=== PATIENT | female | born 2000 | race Caucasian/White ===

== ENCOUNTER 2018-06-29 13:19 | Emergency (ER) | payer MEDICAID ==
[2018-06-29 13:28] VITALS: BP 113/68
--- NOTE | 2018-06-29 13:41 | EDPHY ---
H & P Stated Complaint: ring stuck on left middle finger Time Seen by Provider: 06/29/18 13:31 HPI/ROS: CHIEF COMPLAINT: Ring stuck HISTORY OF PRESENT ILLNESS: Patient is a 17-year-old female who comes to the emergency department complaining ring that is stuck on her left middle finger. She states that it is a cheap ring and that it is too tight. She was sitting in class today and realized that she could not get off. She tried using soap without avail. She states that she began to panic and decided to go to the urgent care. At the urgent care they initially tried to unravel it with dental floss but this did not work. They then tried to cut with ring cutters but there is were not strong enough. They recommended she come to the ER. She denies any trauma or injury to her finger. She has not had any wounds or infections. Severity: Moderate Modifying factors: None REVIEW OF SYSTEMS: Constitutional: denies: chills, fever, recent illness, recent injury EENTM: denies: blurred vision, double vision, nose congestion Respiratory: denies: cough, shortness of breath Cardiac: denies: chest pain, irregular heart rate, lightheadedness, palpitations Gastrointestinal/Abdominal: denies: abdominal pain, diarrhea, nausea, vomiting, blood streaked stools Genitourinary: denies: dysuria, frequency, hematuria, pain Musculoskeletal: See HPI Skin: denies: lesions, rash, jaundice, bruising Neurological: denies: headache, numbness, paresthesia, tingling, dizziness, weakness Hematologic/Lymphatic: denies: blood clots, easy bleeding, easy bruising Immunologic/allergic: denies: HIV/AIDS, transplant 10 systems reviewed and negative except as noted EXAM: GENERAL: Well-appearing, well-nourished and in no acute distress. HEAD: Atraumatic, normocephalic. EYES: Pupils equal round and reactive to light, extraocular movements intact, sclera anicteric, conjunctiva are normal. ENT: TMs normal, nares patent, oropharynx clear without exudates. Moist mucous membranes. NECK: Normal range of motion, supple without lymphadenopathy or JVD. LUNGS: Breath sounds clear to auscultation bilaterally and equal. No wheezes rales or rhonchi. HEART: Regular rate and rhythm without murmurs, rubs or gallops. ABDOMEN: Soft, nontender, normoactive bowel sounds. No guarding, no rebound. No masses appreciated. BACK: No CVA tenderness, no spinal tenderness, step-offs or deformities EXTREMITIES: Reading on left middle finger, moderate swelling over the PIP joint. Normal range of motion. No erythema. No tenderness to the finger itself. Normal capillary refill. Normal sensation. NEUROLOGICAL: Cranial nerves II through XII grossly intact. Normal speech, normal gait. 5/5 strength, normal movement in all extremities, normal sensation , normal reflexes PSYCH: Normal mood, normal affect. SKIN: Warm, dry, normal turgor, no visible rashes or lesions. Source: Patient - Personal History LMP (Females 10-55): 8-14 Days Ago Current Tetanus Diphtheria and Acellular Pertussis (TDAP): Yes - Medical/Surgical History Hx Asthma: No Hx Chronic Respiratory Disease: No Hx Diabetes: No Hx Cardiac Disease: No Hx Renal Disease: No Hx Cirrhosis: No Hx Alcoholism: No Hx HIV/AIDS: No Hx Splenectomy or Spleen Trauma: No Other PMH: none - Family History Significant Family History: No pertinent family hx - Social History Smoking Status: Never smoked Alcohol Use: Sober Drug Use: None Constitutional: Initial Vital Signs Temperature (C) 36.8 C 06/29/18 13:25 Heart Rate 92 06/29/18 13:25 Respiratory Rate 16 06/29/18 13:25 Blood Pressure 113/68 06/29/18 13:25 O2 Sat (%) 96 06/29/18 13:25 O2 Delivery Mode Room Air Allergies/Adverse Reactions: Penicillins Allergy (Verified 06/29/18 13:25) Home Medications: Medication Instructions Recorded NK [No Known Home Meds] 06/29/18 Medical Decision Making ED Course/Re-evaluation: The patient had dental floss in place from the urgent care. I did try to unravel the ring using dental floss. The patient did not tolerate this well. We discussed options and elected to cut the ring because it is simply a cheap ring that she does not care about. 2:05 p.m. the patient's ring was successfully cut off with the ring cutters. Patient tolerated this well. Finger is decreasing in swelling. Normal movement. Normal sensation and capillary refill. No sign of infection. I think the ring was simply too tight to start with. The patient agrees. We discussed follow-up as well as indications for returning. Differential Diagnosis: Partial list of the Differential diagnosis considered include but were not limited to; finger infection, injury, tourniquet and although unlikely based on the history and physical exam, I also considered vascular injury, nerve injury. I discussed these differential diagnoses and the plan with the patient as well as the usual and expected course. The patient understands that the diagnosis is provisional and that in medicine we are not always correct and that further workup is often warranted. Usual and customary warnings were given. All of the patient's questions were answered. The patient was instructed to return to the emergency department should the symptoms at all worsen or return, otherwise to followup with the physician as we discussed. Departure - Departure Disposition: Home, Routine, Self-Care Clinical Impression: Ring or other jewelry causing external constriction, initial encounter Condition: Fair Instructions: Swollen Joint (ED) Referrals: NONE *PRIMARY CARE P,. [Primary Care Provider] - As per Instructions [facility],. [Clinic] - As per Instructions
== END 2018-06-29 14:07 | disposition home or self-care (01) ==
DX: S60.442A External constriction of right middle finger, initial encounter (principal); W49.04XA Ring or other jewelry causing external constriction, initial encounter